=== PATIENT | female | born 1970 | race Caucasian/White ===

== ENCOUNTER 2017-05-16 15:54 | Emergency (ER) | payer OTHER ==
[~2017-05-16] VITALS: Ht 170.2 cm; Wt 102.3 kg
[2017-05-16 15:57] VITALS: Ht 170.2 cm; Wt 102.3 kg
[2017-05-16] MEDS ORDERED: KETOROLAC 30 MG INJ IM STA (16:33)
[2017-05-16 16:46] LABS: URINE BLOOD (Dip) POC 2+ (NEGATIVE)
[2017-05-16] MEDS ORDERED: predniSONE 20 MG TAB PO ONE (17:00)
--- NOTE | 2017-05-16 17:43 | RADRPT ---
PROCEDURE: XR Lumbar Spine. CLINICAL INDICATION: Low back pain with radicular symptoms left side. TECHNIQUE: AP, cone-down lateral, and lateral views of the lumbar spine were obtained. COMPARISON: None. 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 Mineralization is within normal limits. Vertebral bodies are n ormal in height. No fracture is identified. Lumbar lordosis is straightened. No vertebral subluxa tion is seen. The intervertebral discs are normal in height. Paraspinal contours are unremarkable. RPTAT:HJJR IMPRESSION: 1. Straightening of the lordosis may be positioning but cannot exclude muscle spasm. 2. Otherwise unremarkable three view series of the lumbar spine. Physician Ronnell Date Time Electronically viewed and signed by Physician Ronnell on 05/16/2017 17:42 JR/
--- NOTE | 2017-05-16 17:52 | ERD ---
ER Documentation Chief Complaint Date/Time DATE: 05/16/17 TIME: 17:47 Chief Complaint back pain radiating down leg x1day HPI This 46-year-old female presented to the emergency department today complaining of left-sided back pain that started yesterday. Patient states that she was in the shower when all since she started feeling some pain in her back that goes down her left leg. Denies any previous back pain. Denies any trauma. States he took ibuprofen with limited improvement in symptoms. Denies any fevers or chills, dysuria, loss of bowel or bladder control. ROS All systems reviewed and are negative except as per history of present illness. Medications Home Meds Active Scripts Prednisone* (Prednisone*) 20 Mg Tab, 40 MG PO DAILY for 4 Days, TAB Prov:DARRYL EMMANUEL PA-C 05/16/17 Cyclobenzaprine Hcl* (Cyclobenzaprine Hcl*) 10 Mg Tablet, 10 MG PO QHS, #7 TAB Prov:DARRYL EMMANUEL PA-C 05/16/17 Naproxen* (Naprosyn*) 500 Mg Tablet, 500 MG PO BID Y for PAIN AND/OR INFLAMMATION, #30 TAB Prov:DARRYL EMMANUEL PA-C 05/16/17 Tramadol HCl (Tramadol HCl) 50 Mg Tablet, 50 MG PO Q4 Y for PAIN, #20 TAB Prov:DARRYL EMMANUEL PA-C 05/16/17 PMhx/Soc Medical and Surgical Hx: pt denies Medical Hx, pt denies Surgical Hx Hx Alcohol Use: No Hx Substance Use: No Hx Tobacco Use: No Smoking Status: Never smoker Physical Exam Vitals Vital Signs Date Time Temp Pulse Resp B/P Pulse Ox O2 Delivery O2 Flow Rate FiO2 05/16/17 15:57 98.9 80 18 137/86 100 Physical Exam Const: NAD Head: Atraumatic Eyes: Normal Conjunctiva ENT: Normal External Ears, Nose and Mouth. Neck: Full range of motion..~ No meningismus. Resp: Clear to auscultation bilaterally Cardio: Regular rate and rhythm, no murmurs Skin: No petechiae or rashes Back: Midline tenderness and left-sided paraspinal tenderness. No CVA tenderness. Positive straight leg raise. Pulses 2+. Distal neurovascularly intact. Ext: No cyanosis, or edema Neur: Awake and alert Psych: Normal Mood and Affect Results 24 hrs Laboratory Tests Test 05/16/17 16:53 Bedside Urine pH (LAB) 5.5 Bedside Urine Protein (LAB) Negative Bedside Urine Glucose (UA) Negative Bedside Urine Ketones (LAB) Negative Bedside Urine Blood 2+ Bedside Urine Nitrite (LAB) Negative Bedside Urine Leukocyte Esterase (L Negative Current Medications Medications (Trade) Dose Ordered Sig/Khari Route PRN Reason Start Time Stop Time Status Last Admin Dose Admin Ketorolac Tromethamine (Toradol) 30 mg ONCE STAT IM 05/16/17 16:33 05/16/17 16:35 DC 05/16/17 16:50 Prednisone (Prednisone) 60 mg ONCE ONCE PO 05/16/17 17:00 05/16/17 17:01 DC 05/16/17 16:50 DIAGNOSTIC IMAGING REPORT Patient: KLEVER CHURCHILL : 1970 Age: 46 Sex: F MR #: [id number] DOS: 05/16/17 0000 Ordering MD: DARRYL EMMANUEL PA-C Location: [facility] Room/Bed: PROCEDURE: XR Lumbar Spine. CLINICAL INDICATION: Low back pain with radicular symptoms left side. TECHNIQUE: AP, cone-down lateral, and lateral views of the lumbar spine were obtained. COMPARISON: None. 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 Mineralization is within normal limits. Vertebral bodies are normal in height. No fracture is identified. Lumbar lordosis is straightened. No vertebral subluxation is seen. The intervertebral discs are normal in height. Paraspinal contours are unremarkable. RPTAT:HJJR IMPRESSION: 1. Straightening of the lordosis may be positioning but cannot exclude muscle spasm. 2. Otherwise unremarkable three view series of the lumbar spine. Physician Ronnell Date Time Electronically viewed and signed by Physician Ronnell on 05/16/2017 17:42 JR/ CC: DARRYL EMMANUEL PA-C Procedures/MDM UA is negative for infection. There is 2+ hematuria. Per the radiology report images of the lumbar spine shows straightening of the lordosis that may be positioning but cannot exclude muscle spasm. Otherwise unremarkable. There is no fracture identified. Intervertebral discs are normal in height. Symptoms at this time is consistent with back pain likely sciatic related pain. She is afebrile and otherwise well-appearing. She has no loss of bowel or bladder control. Low suspicion for cauda equina or abscess.I did explain to the patient that she did have blood in her urine and this could be caused by kidney stones however I do not feel that this is the source of the patient's back pain given that she has pain down the posterior aspect of her back. I did explain to her she does need to follow-up with her primary care doctor in regards to that. Patient has no dysuria.Her last menstrual cycle was approximately 5-6 years ago she indicated she had a hysterectomy. Patient was given Toradol and prednisone here in the emergency department. She had significant improvement in pain and was sitting comfortably.Patient was given a prescription for short course of tramadol, prednisone, Naprosyn and Flexeril for home.Patient declined crutches here in the emergency department to help her walk. At this time the patient is stable for discharge and outpatient management. Patient should follow up with their PCP in the next 1-2 days. They may return to the emergency department sooner for any persistent or worsening of symptoms. Patient and daughter understood and agreed with the plan. Departure Diagnosis: Primary Impression: Back pain Back pain location: low back pain Chronicity: acute Back pain laterality: left Sciatica presence: with sciatica Sciatica laterality: sciatica of left side Qualified Code: M54.42 - Acute left-sided low back pain with left-sided sciatica Condition: DARRYL Vee PA-C May 16, 2017 17:52
[2017-05-16] MEDS ORDERED: NAPR-260 PO (17:53)
[2017-05-16] MEDS ORDERED: TRAM50TA2 PO (17:53)
[2017-05-16] MEDS ORDERED: PRED20TA PO (17:54)
[2017-05-16] MEDS ORDERED: CYCL-319 PO (17:54)
== END 2017-05-16 18:05 | disposition home or self-care (01) ==
LOC: FTE 15:54
DX: M54.42 Lumbago with sciatica, left side (principal)
CPT/HCPCS: 72100; 81003; 96372; 99284; J1885; J7512